=== PATIENT | male | born 1940 | race Caucasian/White ===

== ENCOUNTER 2022-12-13 02:12 | Emergency (ER) | payer MEDICARE, OTHER ==
[2022-12-13 02:49] LABS: ESTIMATED GFR 54 mL/min (>60)
== END 2022-12-13 04:15 ==
LOC: JD.ED 02:12
DX: I61.4 Nontraumatic intracerebral hemorrhage in cerebellum (principal); I48.91 Unspecified atrial fibrillation; I11.0 Hypertensive heart disease with heart failure; I50.9 Heart failure, unspecified; G30.9 Alzheimer's disease, unspecified; Z79.01 Long term (current) use of anticoagulants
CPT/HCPCS: 36415; 70450; 70450-26; 71045; 71045-26; 80053; 85025; 99285